=== PATIENT | female | born 1985 | race Caucasian/White ===

== ENCOUNTER → 2017-07-07 | Emergency (ER) | payer MEDICAID, MEDICARE ==
--- NOTE | 2017-07-07 20:49 | RAD ---
RIGHT ELBOW FOUR VIEWS: 07/07/17 HISTORY: Fall with elbow pain. There is deformity to the elbow. Some of this appears to be related to posttraumatic change with defo rmity to the distal humerus. The humerus is anteriorly displaced in relation to the expected normal p osition. There is subluxation at the radial capitellar joint and it is difficult to assess the articu lation between the olecranon fossa an the humeral head. I am not certain how much of this may be old posttraumatic change. 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 The humerus is anteriorly subluxed or dislocated. I am not certain how much of these changes are related to old posttraumatic change. POS: DARSHANA
== END ==
LOC: MADERS 16:55
DX: S53.014A Anterior dislocation of right radial head, initial encounter (principal); Q93.4 Deletion of short arm of chromosome 5; Z79.899 Other long term (current) drug therapy; W18.30XA Fall on same level, unspecified, initial encounter